=== PATIENT | female | born 1995 | race Hispanic/Latino ===

== ENCOUNTER 2020-01-28 17:38 | Emergency (ER) | payer BC ==
[~2020-01-28] VITALS: Ht 165.1 cm; Wt 94.7 kg
[2020-01-28 18:16] LABS: BASO % 0.8 % (0.0-1.0); EOS # 0.2 10^3/uL (0.0-0.5); EOS % 4.5 % (0.0-3.0); HEMATOCRIT 40.9 % (36.0-47.0); HEMOGLOBIN 13.3 g/dl (12.0-15.5); LYMPH # 2.6 10^3/uL (1.5-5.0); LYMPH % 49.3 % (24.0-44.0); MEAN CORPUSCULAR HEMOGLOBIN 30.7 pg (27.0-33.0); MEAN CORPUSCULAR HGB CONC 32.5 g/dl (32.0-36.5); MEAN CORPUSCULAR VOLUME 94.5 fl (80.0-96.0); MONO # 0.6 10^3/uL (0.0-0.8); NEUTROPHILS # 1.8 10^3/uL (1.5-8.5); NEUTROPHILS % 33.2 % (36.0-66.0); PLATELET COUNT, AUTOMATED 263 10^3/uL (150-450); RED BLOOD COUNT 4.33 10^6/uL (4.00-5.40); WHITE BLOOD COUNT 5.3 10^3/uL (4.0-10.0)
--- NOTE | 2020-01-28 18:53 | REPVR ---
PROCEDURE INFORMATION: Exam: US First Trimester, Transabdominal Exam date and time: 01/28/2020 6:30 PM Age: 24 years old Clinical indication: complicated by abdominal or pelvic pain; Right lower quadrant; First trimester; Gestational age or lmp: 5; ; Additional info: Pain rlq preg TECHNIQUE: Imaging protocol: Real-time transabdominal obstetrical ultrasound of the maternal pelvis and a first trimester , less than 14 weeks 0 days, with image documentation. COMPARISON: No relevant prior studies available. FINDINGS: GESTATION: Gestation: There is a probable gestational sac within the uterus with a possible yolk sac. Mean sac size is 4.3 mm consistent with 5 weeks 0 days gestation. BIOMETRY: Estimated gestational age: 5 weeks 0 days MATERNAL: Uterus: Unremarkable. Cervix: Unremarkable. Right adnexa: Right ovary measures 3.2 x 1.7 x 3.4 cm. Left adnexa: Left ovary measures 3.8 x 2.8 x 3.5 cm. Arterial and venous flow is apparent. There is a complex structure in the left ovary with blood flow in the perimeter. It measures 1.7 x 1.4 x 1.4 cm. Intraperitoneal: No intraperitoneal free fluid. IMPRESSION: There is a probable gestational sac within the uterus consistent with 5 week 0 day gestation. RAVINDER is 09/24/2020. There is a complex structure in the left ovary which could represent a corpus luteum among other etiologies. Electronically signed by: Татьяна Remy On 01/28/2020 18:52:35 PM
[2020-01-28 19:08] LABS: ALT/SGPT 20 U/L (12-78); BILIRUBIN,DIRECT 0.1 MG/DL (0.0-0.2); BILIRUBIN,TOTAL 0.3 MG/DL (0.2-1.0); BLOOD UREA NITROGEN 15 MG/DL (7-18); CALCIUM LEVEL 9.1 MG/DL (8.5-10.1); CARBON DIOXIDE LEVEL 29 MEQ/L (21-32); CHLORIDE LEVEL 106 MEQ/L (98-107); CREATININE FOR GFR 0.72 MG/DL (0.55-1.30); GLOMERULAR FILTRATION RATE > 60.0 (>60); GLUCOSE, FASTING 87 MG/DL (70-100); HCG, SERUM QUANTITATIVE 1298 MIU/ML; LIPASE 174 U/L (73-393); SODIUM LEVEL 139 MEQ/L (136-145); TOTAL PROTEIN 7.7 GM/DL (6.4-8.2)
[2020-01-28 19:17] VITALS: BP 144/91
== END 2020-01-28 19:17 | disposition home or self-care (01) ==
LOC: M ED 17:38
DX: O99.89 Other specified diseases and conditions complicating pregnancy, childbirth and the puerperium (principal); R10.11 Right upper quadrant pain; Z3A.01 Less than 8 weeks gestation of pregnancy

== ENCOUNTER → 2020-02-11 | Outpatient (REF) | payer BC ==
[2020-02-11 17:05] LABS: HEMATOCRIT 38.4 % (36.0-47.0); HEMOGLOBIN 13.1 g/dl (12.0-15.5); MEAN CORPUSCULAR HEMOGLOBIN 32.1 pg (27.0-33.0); MEAN CORPUSCULAR HGB CONC 34.1 g/dl (32.0-36.5); MEAN CORPUSCULAR VOLUME 94.1 fl (80.0-96.0); PLATELET COUNT, AUTOMATED 239 10^3/uL (150-450); RED BLOOD COUNT 4.08 10^6/uL (4.00-5.40); WHITE BLOOD COUNT 4.9 10^3/uL (4.0-10.0)
[2020-02-11 19:29] LABS: HCG, SERUM QUANTITATIVE 37747 MIU/ML
[2020-02-12 09:38] LABS: HEPATITIS C VIRUS ABY INDEX 0.1 INDEX (<0.8); HIV 1&2 SCREEN CENTAUR NEGATIVE (NEGATIVE)
[2020-02-15 00:06] LABS: HEMOGLOBIN A 96.9 % (96.4-98.8); HEMOGLOBIN A2 2.4 % (1.8-3.2); HEMOGLOBIN F (FETAL) 0.7 % (0.0-2.0); HGB SOLUBILITY Negative (Negative)
== END ==
LOC: M LAB REF 16:10
PROVIDERS: ATTEND Obstetrics & Gynecology
DX: O36.80X0 Pregnancy with inconclusive fetal viability, not applicable or unspecified (principal); Z3A.01 Less than 8 weeks gestation of pregnancy

== ENCOUNTER → 2020-02-14 | Outpatient (CLI) | payer BC ==
--- NOTE | 2020-02-14 16:53 | REP ---
Obstetric sonography: History: Supervision of . Findings: Abdominal and transvaginal scanning are performed. A single living intrauterine gestation is confirmed. [place]-rump length of the embryonic pole is 10 mm. This corresponds with a gestational age estimate of 7 weeks 0 days. heart rate is recorded at 153 beats per minute. There is a hypoechoic cystic area in the maternal left ovary consistent with corpus luteum. No gross abnormality. There is a hyperechoic area adjacent to the gestational sac, possible subchorionic hemorrhage. Impression: Viable single intrauterine gestation at 7 weeks 0 days by crown-rump length. RAVINDER by today's sonography October 02, 2020. There is evidence of hyperechoic area adjacent to the gestational sac, possible subchorionic hemorrhage. Electronically Signed by Socrates Lomeli MD 02/14/2020 04:45 P
== END ==
LOC: M LRY 14:19
PROVIDERS: ATTEND Obstetrics & Gynecology
DX: O36.80X0 Pregnancy with inconclusive fetal viability, not applicable or unspecified (principal); Z3A.01 Less than 8 weeks gestation of pregnancy

== ENCOUNTER → 2020-03-16 | Outpatient (REF) | payer BC | LOC: M LAB REF 11:26 | PROVIDERS: ATTEND Physician Assistant | DX: Z20.828 Contact with and (suspected) exposure to other viral communicable diseases (principal) ==